=== PATIENT | male | born 1980 | race Caucasian/White ===

== ENCOUNTER 2016-05-04 09:04 | Emergency (ER) | payer BC ==
[2016-05-04] MEDS ORDERED: IBUPROFEN 200 MG TAB PO ONE (09:18)
--- NOTE | 2016-05-04 09:21 | UCPHY ---
H & P Time Seen by Provider: 05/04/16 09:12 Patient Type: Established HPI/ROS: HPI Fever, sore throat. 35-year-old male by private vehicle. Reports onset of low-grade fever and chills last night followed by a sore throat. Reports fever has continued this morning with associated sore throat. Pain worsened throat with swallowing. He states he is able to swallow liquids without difficulty. No voice changes. Denies stridor. ROS: Constitutional: As above. No weakness. Eyes: No discharge. No changes in vision. ENT: As above. No nasal congestion or rhinorrhea. Respiratory: No cough. No shortness of breath. Cardiac: No chest pain, no palpitations. Gastrointestinal: No abdominal pain, no vomiting, no diarrhea. Genitourinary: No hematuria. No dysuria or increased frequency with urination. Musculoskeletal: No back pain. No neck pain. No myalgias or arthralgias. Skin: No rashes. Neurological: No headache. No focal weakness or altered sensation. Past medical history: No significant past medical history. Social history: . is at home. Nonsmoker. Physical Exam: General Appearance: Alert, no distress. This patient is responding to questions appropriately and in full sentences. This patient appears well- hydrated and well-nourished. Eyes: Pupils equal and round no pallor or injection. No lid edema, erythema or injection. ENT, Mouth: Mucous membranes are moist. Mild pharyngeal erythema which is diffuse. Scant exudates posterior pharynx. No asymmetry of pharyngeal tissues to suggest abscess. No stridor on auscultation of the neck. Respiratory: There are no retractions, lungs are clear to auscultation with good air movement bilaterally. Cardiovascular: Regular rate and rhythm. No murmur. Neurological: Motor sensory function is grossly intact. Cranial nerves are normal. Gait is normal. Skin: Warm and dry, no rashes. Musculoskeletal: Neck is supple and nontender. Mild cervical lymphadenopathy, slightly greater on the left versus the right. Submandibular and submental tissues are soft and otherwise unremarkable on exam. Extremities are symmetrical. All joints range without pain or impingement. Psychiatric: No agitation. No depression. Database: Rapid strep-negative. EKG: Imaging: Procedures: Emergency department course: Patient given 600 mg of ibuprofen. Rapid strep swab obtained. 9:45 a.m., patient re-evaluated. Resting comfortably at this time. Results of rapid strep discussed. Diagnosis of probable viral pharyngitis reviewed. Explained that we would have a culture result in 2-3 days and would notify him if positive. Supportive care reviewed. Ibuprofen dosing reviewed. He feels comfortable going home and I feel he is safe for discharge. Follow-up and return to Urgent Care precautions have been discussed with him. All of his questions were answered. He was discharged in good condition. Differential Diagnosis: The differential diagnosis on this patient includes but is not limited to viral pharyngitis, viral syndrome. Streptococcal pharyngitis, retropharyngeal abscess , peritonsillar abscess, tracheitis, epiglottitis, other serious bacterial infection unlikely. This represents a partial list of diagnoses considered. These considerations are based on history, physical exam, past history, reassessment and diagnostic testing. Smoking Status: Never smoked Constitutional: Initial Vital Signs Temperature (C) 37.2 C 05/04/16 09:24 Heart Rate 74 05/04/16 09:24 Respiratory Rate 18 05/04/16 09:24 Blood Pressure 122/74 H 05/04/16 09:24 O2 Sat (%) 95 05/04/16 09:24 O2 Delivery Mode Room Air Allergies/Adverse Reactions: Penicillins Allergy (Verified 11/16/13 19:51) Home Medications: Medication Instructions Recorded Azithromycin [Zithromax tab 250 mg] 250 mg PO DAILY #6 tab 11/16/13 Medical Decision Making - Data Points Laboratory Results: 05/04/16 05/04/16 Unknown 09:30 Group A Strep Screen NEGATIVE (NEGATIVE) Group A Strep DNA Pending Departure - Departure Disposition: Home, Routine, Self-Care Clinical Impression: Pharyngitis Condition: Good Instructions: Pharyngitis (ED) Additional Instructions: Read and follow provided instructions. Follow-up with your primary care physician in 2-3 days for re-evaluation as needed. Ibuprofen dosin mg every 6 hours with meals for the next 3 days only. Return to the emergency department for worsening symptoms or other serious concerns. Referrals: NONE *PRIMARY CARE P,. [Primary Care Provider] - As per Instructions - PQRS PQRS Measurement: Not applicable.
[2016-05-04 09:25] VITALS: BP 122/74; PULSE 74; RESP 18; TEMP 99; O2SAT 95
== END 2016-05-04 09:56 | disposition home or self-care (01) ==
LOC: CED 09:04
DX: R50.9 Fever, unspecified (principal); R07.0 Pain in throat
CPT/HCPCS: 87880-PO; G0463-PO